=== PATIENT | male | born 1935 | race Hispanic/Latino ===

== ENCOUNTER → 2018-06-06 | Outpatient (CLI) | payer OTHER ==
[~2018-06-06] MED LIST: REGADENOSON 0.4 MG/5 ML PF SYG IVP SCH
== END | disposition home or self-care (01) ==
LOC: SHCH 08:09
PROVIDERS: ATTEND Internal Medicine Cardiovascular Disease
DX: I25.709 Atherosclerosis of coronary artery bypass graft(s), unspecified, with unspecified angina pectoris (principal)
CPT/HCPCS: 78452; 93017; 96374; A9500 ×2; J2785

== ENCOUNTER 2019-05-17 09:00 | Inpatient (IN) | payer OTHER ==
[2019-05-15 11:06] LABS: APPEARANCE,URINE Clear (CLEAR); BILIRUBIN,URINE Small (NEGATIVE); COLOR,URINE Dark Yellow (YELLOW); GLUCOSE, URINE (UA) Negative (NEGATIVE); KETONES,URINE Negative (NEGATIVE); LEUKOCYTE ESTERASE ,URINE Small (NEGATIVE); NITRATE,URINE Negative (NEGATIVE); OCCULT BLOOD,URINE Nonhemolyzed Trace (NEGATIVE); PH,URINE 5.5 (5.0-8.0); PROTEIN,URINE Trace mg/dL (NEGATIVE)
[2019-05-15 11:09] LABS: CREATININE 1.3 mg/dL (0.5-1.5); POTASSIUM 3.4 mmol/L (3.5-5.1)
[2019-05-15 11:10] LABS: BASOPHILS % (AUTO) 0.6 % (0.0-5.0); EOSINOPHILS % (AUTO) 0.7 % (0.0-8.0); HEMATOCRIT 34.9 % (42-54); LYMPHOCYTES % (AUTO) 11.7 % (21.0-51.0); MEAN CORPUSCULAR HEMOGLOBIN 32.3 pg (27.0-33.0); MEAN CORPUSCULAR HGB CONC 33.7 g/dL (32.0-36.0); MEAN CORPUSCULAR VOLUME 95.8 fL (79-99); MONOCYTES % (AUTO) 8.9 % (3.0-13.0); NEUTROPHILS % (AUTO) 78.1 % (40.0-77.0); NUCLEATED RED BLOOD CELLS 0.1 % (0.0-0.19); PLATELET COUNT (AUTO) 265 K/uL (130-400); RED BLOOD CELL COUNT(AUTO) 3.64 MIL/uL (4.50-6.20); RED CELL DISTRIBUTION WIDTH 14.9 % (11.0-15.5); WHITE BLOOD COUNT (AUTO) 5.9 K/uL (4.8-10.8)
[2019-05-15 11:14] VITALS: BP 94/52
[2019-05-15 11:31] LABS: INR 1.24 (0.85-1.15); PARTIAL THROMBOPLASTIN TIME 32.6 SEC (26.3-35.5); PROTHROMBIN TIME 12.9 SEC (9.6-11.6)
[2019-05-15 11:35] LABS: BACTERIA,URINE None Seen /HPF (None Seen); SQUAMOUS EPITHELIAL CELL,UR 0-2 /HPF (0-2); WBC,URINE 0-1 /HPF (0-1)
--- NOTE | 2019-05-16 15:33 | NUR ---
CAMILO RENTERIA NOTIFIED OF ABNORMAL CREAT, POTASSIUM, PT,INR, UA, AND CXR. NO NEW ORDERS RECEIVED.
[~2019-05-17] VITALS: Ht 163.8 cm; Wt 56.7 kg
[~2019-05-17 09:00] MED LIST changes: +ATOR40TA71 PO; +FURO40TA5 PO; +LEVO25TA54 PO; +LINA5TAB PO; +POTA-79 PO; -REGADENOSON 0.4 MG/5 ML PF SYG IVP SCH; +SODIUM CHLORIDE 0.9% 1000ML 1,000 ML IV ONE; +SODIUM CHLORIDE 0.9% 500ML 500 ML IV SCH; +TRAM-355 PO
[2019-05-17 09:18] VITALS: BP 114/69
--- NOTE | 2019-05-17 17:00 | NUR ---
PATIENT TRANSFERRED PATIENT TAKEN TO SAMPLE TESTER VIA BED BY CECIL COOK. PATIENT SPOUSE INSTRUCTED TO WAIT IN ROOM SO THAT DR ALVARADO CAN SPEAK WITH PATIENT FOLLOWING PROCEDURE, VERBALIZED UNDERSTANDING.
--- NOTE | 2019-05-17 17:20 | NUR ---
PATIENT RETURNED PATIENT BROUGHT BACK FROM MACHINE PRESSER VIA BED BY CECIL COOK. PATIENT AAOX3, RESPIRATIONS UNLABORED, VITAL SIGNS STABLE. PATIENT DENIES ANY PAIN AT THIS TIME. SPOUSE AT BEDSIDE. EXPLAINED TO SPOUSE AND PATIENT THAT PROCEDURE CANCELED DUE TO ABNORMAL CHEST XRAY.
[2019-05-17 17:30] VITALS: BP 125/74
[2019-05-17 18:00] VITALS: BP 121/77
--- NOTE | 2019-05-17 18:22 | NUR ---
HANDOFF COMMUNICATION CALLED REPORT TO CECIL CHOU USING SBAR. INFORMED CECIL CHOU REGARDING PATIENT STATUS AND THAT PATIENT IS GOING TO BE TAKEN FOR CT OF THE CHEST WITHOUT CONTRAST AND THEN SENT TO ROOM 226. ALL QUESTIONS/CONCERNS ADDRESSED.
--- NOTE | 2019-05-17 18:25 | NUR ---
PATIENT TRANSFERRED PATIENT TAKEN VIA WHEELCHAIR TO HAVE CT OF CHEST DONE, ACCOMPANIED PATIENT. PATIENT TO BE TAKEN TO [address] CHEST IS DONE.
[2019-05-17 18:53] VITALS: BP 144/96
[2019-05-17 19:00] VITALS: BP 129/81
[2019-05-17] MEDS ORDERED: POTASSIUM CHLORIDE 20 MEQ ERTAB PO STA (19:17)
[2019-05-17] MEDS ORDERED: FUROSEMIDE 10 MG/ML 4ML VIAL IV SCH (19:30)
[2019-05-17] MEDS ORDERED: ONDANSETRON HCL 4 MG/2 ML VIAL IV PRN (20:00)
[2019-05-17] MEDS ORDERED: LACTULOSE 20 GM/30 ML UDCUP PO PRN (20:00)
[2019-05-17] MEDS ORDERED: POTASSIUM CHLORIDE 20 MEQ ERTAB PO SCH ×2 (20:00→21:00)
[2019-05-17] MEDS ORDERED: ACETAMINOPHEN 325 MG TAB PO PRN ×2 (20:00)
[2019-05-17] MEDS ORDERED: MORPHINE SULFATE 2 MG/ML 1ML SYG IVP PRN (20:00)
[2019-05-17] MEDS ORDERED: SODIUM CHLORIDE 3% FOR INHALATION 4 ML/AMP VIAL.NEB IH ONE (20:30)
[2019-05-17] MEDS: IPRATROPIUM/ALBUTEROL SULFATE 3 ML SOLUTION IH PRN (20:53)
[2019-05-17] MEDS: INSULIN HUMULIN R 100 UNIT/ML 3ML SQ SCH (21:00)
[2019-05-17] MEDS ORDERED: POTASSIUM CHLORIDE 20 MEQ ERTAB PO ONE (21:15)
[2019-05-17] MEDS: AZITHROMYCIN 500MG+NS 250ML 250 ML IV SCH (21:22)
[2019-05-17] MEDS: CEFTRIAXONE SODIUM 1 GM IVP SCH (21:22)
[2019-05-17] MEDS: ATORVASTATIN CALCIUM 40 MG TABLET PO SCH (21:22)
[2019-05-17 23:00] VITALS: BP 116/77
[2019-05-18 03:00] VITALS: BP 111/64
[2019-05-18] MEDS ORDERED: SODIUM CHLORIDE 3% FOR INHALATION 4 ML/AMP VIAL.NEB IH ONE ×2 (03:55→07:30)
[2019-05-18] MEDS: IPRATROPIUM/ALBUTEROL SULFATE 3 ML SOLUTION IH PRN ×2 (03:57→21:37)
[2019-05-18 04:37] LABS: BASOPHILS % (AUTO) 0.4 % (0.0-5.0); EOSINOPHILS % (AUTO) 0.4 % (0.0-8.0); HEMATOCRIT 33.2 % (42-54); LYMPHOCYTES % (AUTO) 11.6 % (21.0-51.0); MEAN CORPUSCULAR HEMOGLOBIN 31.7 pg (27.0-33.0); MEAN CORPUSCULAR HGB CONC 33.6 g/dL (32.0-36.0); MEAN CORPUSCULAR VOLUME 94.5 fL (79-99); MONOCYTES % (AUTO) 9.4 % (3.0-13.0); NEUTROPHILS % (AUTO) 78.2 % (40.0-77.0); PLATELET COUNT (AUTO) 260 K/uL (130-400); RED BLOOD CELL COUNT(AUTO) 3.51 MIL/uL (4.50-6.20); RED CELL DISTRIBUTION WIDTH 15.4 % (11.0-15.5); WHITE BLOOD COUNT (AUTO) 6.1 K/uL (4.8-10.8)
[2019-05-18 04:55] LABS: CREATININE 1.1 mg/dL (0.5-1.5); POTASSIUM 3.3 mmol/L (3.5-5.1)
[2019-05-18] MEDS ORDERED: POTASSIUM CHLORIDE 20 MEQ ERTAB PO SCH (06:00)
[2019-05-18] MEDS ORDERED: POTASSIUM CHLORIDE 20 MEQ ERTAB PO ONE (06:06)
[2019-05-18] MEDS: INSULIN HUMULIN R 100 UNIT/ML 3ML SQ SCH ×4 (06:19→22:18)
[2019-05-18] MEDS: LEVOTHYROXINE 25 MCG TABLET PO SCH (06:22)
[2019-05-18] MEDS: FAMOTIDINE 20MG TAB 20 MG TAB PO SCH (07:53)
[2019-05-18] MEDS: LINAGLIPTIN 5 MG TABLET PO SCH (07:53)
[2019-05-18] MEDS: ENOXAPARIN SODIUM 30 MG/0.3 ML SQ SCH (07:54)
[2019-05-18 08:00] VITALS: BP 101/67
[2019-05-18] MEDS ORDERED: FUROSEMIDE 10 MG/ML 10ML VIAL IVP SCH (10:15)
[2019-05-18 11:00] VITALS: BP 110/72
[2019-05-18] MEDS: POTASSIUM CHLORIDE 20 MEQ ERTAB PO SCH ×4 (11:43→20:59)
[2019-05-18] MEDS ORDERED: FUROSEMIDE 40 MG TABLET PO SCH (12:00)
--- NOTE | 2019-05-18 14:27 | NUR ---
DC PLAN PATIENT AMBULATING WITHOUT ASSISTANCE FROM BATHROOM TO HOSPITAL BED WHEN ENTERED ROOM, FAMILY AT BEDSIDE. PER PATIENT HE IS INDEPENDENT, LIVES WITH SPOUSE, HAS A WALKER, NO PROVIDER AND FEELS SAFE TO RETURN HOME. Addendum: 05/18/19 at 1428 by KAY JUAREZ RN Amended: Links added.
--- NOTE | 2019-05-18 15:05 | NUR ---
DR. Dawson GOMEZ IN ROOM SPEAKING WITH PT. AND EXPLAINING CT CHEST FINDINGS AND IMAGES WITH USE OF UNX SYSTEM. PLAN OF CARE AND DIFFERENT TREATMENT OPTIONS EXPLAINED BY DR. GOMEZ. QUESTIONS ANSWERED BY DR. Dawson GOMEZ. PT.'S GRANDDAUGHTER AT BEDSIDE.
[2019-05-18 16:00] VITALS: BP 114/72
[2019-05-18 19:00] VITALS: BP 108/58
[2019-05-18] MEDS: ATORVASTATIN CALCIUM 40 MG TABLET PO SCH (20:59)
[2019-05-18] MEDS: AZITHROMYCIN 500MG+NS 250ML 250 ML IV SCH (21:00)
[2019-05-18] MEDS: CEFTRIAXONE SODIUM 1 GM IVP SCH (21:00)
[2019-05-18 23:00] VITALS: BP 117/70
[2019-05-19] MEDS: POTASSIUM CHLORIDE 20 MEQ ERTAB PO SCH ×3 (00:19→06:00)
[2019-05-19 03:00] VITALS: BP 101/54
[2019-05-19 04:51] LABS: HEMATOCRIT 33.4 % (42-54); MEAN CORPUSCULAR HEMOGLOBIN 31.5 pg (27.0-33.0); MEAN CORPUSCULAR HGB CONC 33.3 g/dL (32.0-36.0); MEAN CORPUSCULAR VOLUME 94.6 fL (79-99); PLATELET COUNT (AUTO) 264 K/uL (130-400); RED BLOOD CELL COUNT(AUTO) 3.53 MIL/uL (4.50-6.20); RED CELL DISTRIBUTION WIDTH 15.3 % (11.0-15.5); WHITE BLOOD COUNT (AUTO) 5.7 K/uL (4.8-10.8)
[2019-05-19 05:03] LABS: CREATININE 1.2 mg/dL (0.5-1.5); MAGNESIUM 1.7 mg/dL (1.80-2.40); POTASSIUM 5.6 mmol/L (3.5-5.1)
[2019-05-19] MEDS: LEVOTHYROXINE 25 MCG TABLET PO SCH (06:02)
[2019-05-19] MEDS: IPRATROPIUM/ALBUTEROL SULFATE 3 ML SOLUTION IH PRN ×2 (06:29→18:23)
[2019-05-19] MEDS: INSULIN HUMULIN R 100 UNIT/ML 3ML SQ SCH ×3 (07:06→16:16)
[2019-05-19 07:30] VITALS: BP 118/65
[2019-05-19] MEDS: LINAGLIPTIN 5 MG TABLET PO SCH (10:27)
[2019-05-19] MEDS: FAMOTIDINE 20MG TAB 20 MG TAB PO SCH (10:27)
[2019-05-19] MEDS: ENOXAPARIN SODIUM 30 MG/0.3 ML SQ SCH (10:29)
[2019-05-19 12:00] VITALS: BP 129/66
[2019-05-19] MEDS: MAGNESIUM OXIDE 400 MG TABLET PO SCH (12:06)
[2019-05-19] MEDS: NEUTRA-PHOS PACKET 1 EACH PO SCH ×2 (13:31→21:00)
[2019-05-19 16:00] VITALS: BP 112/65
--- NOTE | 2019-05-19 17:00 | NUR ---
cm note met with patient and informed of md orders for home oxygen setup, pt verbalizes understanding, choice letter and SHERI obtained for any in network provider through [employer]. pt's insurance, verified address. will obtain needed paperwork by md.
[2019-05-19 19:00] VITALS: BP 137/88
[2019-05-19] MEDS: ATORVASTATIN CALCIUM 40 MG TABLET PO SCH (20:21)
[2019-05-19] MEDS: CEFTRIAXONE SODIUM 1 GM IVP SCH (20:21)
[2019-05-19] MEDS: AZITHROMYCIN 500MG+NS 250ML 250 ML IV SCH (20:22)
[2019-05-19 23:00] VITALS: BP 122/80
[2019-05-20 03:00] VITALS: BP 133/79
[2019-05-20 04:38] LABS: HEMATOCRIT 31.8 % (42-54); MEAN CORPUSCULAR HEMOGLOBIN 31.5 pg (27.0-33.0); MEAN CORPUSCULAR VOLUME 95.4 fL (79-99); PLATELET COUNT (AUTO) 239 K/uL (130-400); RED BLOOD CELL COUNT(AUTO) 3.33 MIL/uL (4.50-6.20); RED CELL DISTRIBUTION WIDTH 15.4 % (11.0-15.5); WHITE BLOOD COUNT (AUTO) 5.1 K/uL (4.8-10.8)
[2019-05-20 05:01] LABS: CREATININE 1.1 mg/dL (0.5-1.5); MAGNESIUM 1.7 mg/dL (1.80-2.40); PHOSPHORUS 3.5 mg/dL (2.5-4.9); POTASSIUM 4.7 mmol/L (3.5-5.1)
[2019-05-20] MEDS: LEVOTHYROXINE 25 MCG TABLET PO SCH (06:18)
[2019-05-20] MEDS: INSULIN HUMULIN R 100 UNIT/ML 3ML SQ SCH ×5 (06:27→20:54)
[2019-05-20] MEDS: IPRATROPIUM/ALBUTEROL SULFATE 3 ML SOLUTION IH PRN (06:33)
[2019-05-20 07:30] VITALS: BP 91/57
[2019-05-20] MEDS: LINAGLIPTIN 5 MG TABLET PO SCH (08:31)
[2019-05-20] MEDS: MAGNESIUM OXIDE 400 MG TABLET PO SCH (08:32)
[2019-05-20] MEDS: FAMOTIDINE 20MG TAB 20 MG TAB PO SCH (08:32)
[2019-05-20] MEDS: NEUTRA-PHOS PACKET 1 EACH PO SCH ×3 (08:33→20:43)
[2019-05-20] MEDS: ENOXAPARIN SODIUM 30 MG/0.3 ML SQ SCH (08:37)
--- NOTE | 2019-05-20 11:04 | NUR ---
DR. Michelle PA IN ROOM SPEAKING WITH PT. RE:PLAN OF CARE. QUESTIONS ANSWERED BY DR. PA.
--- NOTE | 2019-05-20 12:23 | NUR ---
DR. Dawson GOMEZ IN ROOM SPEAKING WITH PT. AND SPOUSE AT BEDSIDE RE:PLAN OF CARE. QUESTIONS ANSWERED BY DR. GOMEZ.
--- NOTE | 2019-05-20 16:00 | NUR ---
REPORT TO Miles GHOTRA RN.
[2019-05-20 16:35] VITALS: BP 122/73
--- NOTE | 2019-05-20 18:30 | NUR ---
NURSING NOTE Received patient from [facility]. In no distress. Pending oxygen for home use PRN. Patient is A&OX3, ambulatory, continent. Pleasant and in do distress. Family at bedside. Pt is urinating and having BMs with no issues. Eating well. Blood sugar level at 138mg/dL.
[2019-05-20 19:18] VITALS: BP 125/79
[2019-05-20] MEDS: CEFTRIAXONE SODIUM 1 GM IVP SCH (20:43)
[2019-05-20] MEDS: AZITHROMYCIN 500MG+NS 250ML 250 ML IV SCH (20:43)
[2019-05-20] MEDS: ATORVASTATIN CALCIUM 40 MG TABLET PO SCH (20:44)
[2019-05-20 23:32] VITALS: BP 111/83
[2019-05-21 03:39] VITALS: BP 110/74
[2019-05-21] MEDS: INSULIN HUMULIN R 100 UNIT/ML 3ML SQ SCH ×4 (05:24→20:33)
[2019-05-21] MEDS: LEVOTHYROXINE 25 MCG TABLET PO SCH (05:41)
[2019-05-21] MEDS: IPRATROPIUM/ALBUTEROL SULFATE 3 ML SOLUTION IH PRN ×2 (06:20→18:31)
--- NOTE | 2019-05-21 06:20 | NUR ---
SOB Pt states feels a little bit son,placed on 02 at 2 lpm via nc,checked 02 sat 86% on room air,sat went up to 97%.Pt instructed to take slow deep breathe.RT in to assess pt.
[2019-05-21 08:00] VITALS: BP 111/64
[2019-05-21] MEDS ORDERED: FUROSEMIDE 10 MG/ML 10ML VIAL IVP SCH (09:00)
[2019-05-21] MEDS: FAMOTIDINE 20MG TAB 20 MG TAB PO SCH (09:14)
[2019-05-21] MEDS: LINAGLIPTIN 5 MG TABLET PO SCH (09:14)
[2019-05-21] MEDS: NEUTRA-PHOS PACKET 1 EACH PO SCH (09:38)
[2019-05-21] MEDS: MAGNESIUM OXIDE 400 MG TABLET PO SCH (09:39)
[2019-05-21] MEDS: ENOXAPARIN SODIUM 30 MG/0.3 ML SQ SCH (09:40)
[2019-05-21 12:00] VITALS: BP 105/77
[2019-05-21] MEDS: MAGNESIUM 2GM PREMIX 50ML 50 ML IV PRN (13:31)
[2019-05-21] MEDS ORDERED: SODIUM CHLORIDE 0.9% 250 ML IV ONE (13:36)
--- NOTE | 2019-05-21 14:25 | NUR ---
WAITING ON HOME O2 EVALUATION. LAST WAS 05/18 NEED A NEW QUALIFYING SAT FOR THE OXYGEN PAPERWORK
[2019-05-21 16:00] VITALS: BP 116/63
--- NOTE | 2019-05-21 16:00 | NUR ---
DCP HOME ASKED PT IF HE WANTED TO GO TO SNF, DECLINED, DID WELL ON O2 EVAL, DOES NOT NEED O2 ON DISCHARGE WAITING ON MD ORDERS FOR POSSILBE DISCHARGE
[2019-05-21 19:10] VITALS: BP 107/61
[2019-05-21] MEDS: AZITHROMYCIN 500MG+NS 250ML 250 ML IV SCH (20:26)
[2019-05-21] MEDS: CEFTRIAXONE SODIUM 1 GM IVP SCH (20:26)
[2019-05-21] MEDS: ATORVASTATIN CALCIUM 40 MG TABLET PO SCH (20:27)
[2019-05-21] MEDS ORDERED: FUROSEMIDE 10 MG/ML 4ML VIAL IV SCH (20:30)
--- NOTE | 2019-05-21 20:33 | NUR ---
MEDS SHIFT ASSESSMENT DONE, PLEASE REFER TO CHART. DUE MEDS ADMINISTERED, TOLERATED WELL. KEPT RESTED AND COMFORTABLE IN BED. CALL LIGHT WITHIN REACH. WILL MONITOR PT. Addendum: 05/22/19 at 0213 by CRISTINE COLINDRES RN RN Amended: Links added.
[2019-05-21 23:27] VITALS: BP 98/52
--- NOTE | 2019-05-22 02:00 | NUR ---
ROUNDS PT RESTING WELL, NO DISTRESS NOTED. KEPT RESTED AND UNDISTURBED FOR NOW. WILL MONITOR PT. CALL LIGHT WITHIN REACH. FAMILY ASLEEP AT BEDSIDE.
[2019-05-22 03:10] VITALS: BP 107/66
[2019-05-22] MEDS: LEVOTHYROXINE 25 MCG TABLET PO SCH (05:37)
[2019-05-22 05:39] LABS: CREATININE 1.1 mg/dL (0.5-1.5); MAGNESIUM 1.7 mg/dL (1.80-2.40); POTASSIUM 3.5 mmol/L (3.5-5.1)
[2019-05-22] MEDS: MAGNESIUM 2GM PREMIX 50ML 50 ML IV PRN (05:55)
--- NOTE | 2019-05-22 05:55 | NUR ---
MG PT RESTING WELL, NO CONCERNS VERBALIZED. SLEPT AT LONG INTERVALS DURING THE SHIFT. PT'S MG=1.7, IV COVERAGE STARTED. FOR MORE CARE.
[2019-05-22] MEDS: INSULIN HUMULIN R 100 UNIT/ML 3ML SQ SCH ×2 (06:26→11:30)
[2019-05-22] MEDS: IPRATROPIUM/ALBUTEROL SULFATE 3 ML SOLUTION IH PRN (06:58)
[2019-05-22 07:58] VITALS: BP 103/68
--- NOTE | 2019-05-22 08:00 | NUR ---
AM SHIFT ASSESSMENT.
--- NOTE | 2019-05-22 08:30 | NUR ---
DR. DONAHUE IN TO SEE PT.
--- NOTE | 2019-05-22 09:00 | NUR ---
DR. GÓMEZ IN TO SEE PT. DISCHARGE ORDERS ENTERED.
[2019-05-22] MEDS: MAGNESIUM OXIDE 400 MG TABLET PO SCH (09:51)
[2019-05-22] MEDS: FAMOTIDINE 20MG TAB 20 MG TAB PO SCH (09:51)
[2019-05-22] MEDS: LINAGLIPTIN 5 MG TABLET PO SCH (09:51)
[2019-05-22] MEDS: ENOXAPARIN SODIUM 30 MG/0.3 ML SQ SCH (09:52)
[2019-05-22 12:00] VITALS: BP 105/69
--- NOTE | 2019-05-22 12:47 | NUR ---
Pt stated already rec'd flu shot this season. Addendum: 05/22/19 at 1249 by ICNDY STOREY RN RN Amended: Links added.
--- NOTE | 2019-05-22 14:00 | NUR ---
DISCHARGED NOW USING TEACH BACK. BOTH PT. AND VERBALIZE UNDERSTANDING OF ALL INST. GIVEN. SALINE LOCK REMOVED, SITE HEALTHY. WILL FOLLOW UP WITH PCP INST. AND HAS GOOD UNDERSTANDING OF HIS MEDICATIONS.DID NOT MEET CRITERIA FOR HOME O2 .
== END 2019-05-22 14:05 | disposition home or self-care (01) | DRG 291 ==
LOC: DAH 09:00 → DAHIP 17:17 → 2DH 18:33 → 3BH 05-20 16:14
PROVIDERS: ADMIT Internal Medicine; ATTEND Internal Medicine
DX: I11.0 Hypertensive heart disease with heart failure (principal); J18.9 Pneumonia, unspecified organism; Q21.1 Atrial septal defect; J94.8 Other specified pleural conditions; J98.19 Other pulmonary collapse; I50.33 Acute on chronic diastolic (congestive) heart failure; N28.1 Cyst of kidney, acquired; R59.0 Localized enlarged lymph nodes; E11.21 Type 2 diabetes mellitus with diabetic nephropathy; E78.5 Hyperlipidemia, unspecified; E83.42 Hypomagnesemia; E87.6 Hypokalemia; I07.1 Rheumatic tricuspid insufficiency; I25.10 Atherosclerotic heart disease of native coronary artery without angina pectoris; I48.91 Unspecified atrial fibrillation; I70.0 Atherosclerosis of aorta; J98.4 Other disorders of lung; M85.80 Other specified disorders of bone density and structure, unspecified site; Z95.1 Presence of aortocoronary bypass graft; Z86.73 Personal history of transient ischemic attack (TIA), and cerebral infarction without residual deficits; Z83.3 Family history of diabetes mellitus; Z82.49 Family history of ischemic heart disease and other diseases of the circulatory system
CPT/HCPCS: 36415; 71045; 71250; 80048; 81001; 82948; 83735; 84100; 85025; 85027; 85610; 85730; 93005; 94640; 94664; 94760; A4606; G0378; J0456; J0696; J1650; J1815; J1940; J3475; J7030